=== PATIENT | female | born 1985 | race Caucasian/White ===

== ENCOUNTER 2018-08-17 12:13 | Emergency (ER) | payer MEDICAID ==
[~2018-08-17] VITALS: Ht 149.9 cm; Wt 60.5 kg
[~2018-08-17 12:13] MED LIST: BACL20TA PO; CARB15DR91 EACH EAR; CRAN450C PO; DIVA-76 PO; DOCU-20 PO; LACT10SO6 PO; LORA10TA7 PO; LOVA20TA2 PO; METH1TAB32 PO; MULT-1085 PO; NORG1TAB14 PO; SENN-25 PO; TRAM50TA2 PO; [UNRECOGNIZED DRUG - CODE]
[2018-08-17 14:21] LABS: BASOPHILS # (AUTO) 0.1 X10'3 (0-0.2); BASOPHILS % (AUTO) 0.6 % (0-1); EOSINOPHILS # (AUTO) 0.1 X10'3 (0-0.9); EOSINOPHILS % (AUTO) 0.6 % (0-6); HEMATOCRIT 44.3 % (35.0-45.0); HEMOGLOBIN 14.7 g/dl (12.0-16.0); LYMPHOCYTES # (AUTO) 2.5 X10'3 (1.1-4.8); LYMPHOCYTES % (AUTO) 28.4 % (21-51); MEAN CORPUSCULAR HEMOGLOBIN 30.7 PG (27.0-31.0); MEAN CORPUSCULAR HGB CONC 33.3 g/dL (33.0-36.5); MEAN PLATELET VOLUME 9.2 FL (7.4-10.4); MONOCYTES # (AUTO) 0.8 X10'3 (0-0.9); MONOCYTES % (AUTO) 8.6 % (2-12); NEUTROPHILS # (AUTO) 5.4 X10'3 (1.8-7.7); NEUTROPHILS % (AUTO) 61.8 % (42-75); PLATELET COUNT 223 X10'3 (140-440); RED BLOOD COUNT 4.81 X10'6 (4.20-5.60); WHITE BLOOD COUNT 8.7 X10'3 (4.5-11.0)
[2018-08-17 14:34] LABS: ALANINE AMINOTRANSFERASE 30 U/L (12-78); ALBUMIN 3.7 G/DL (3.4-5.0); ALBUMIN/GLOBULIN RATIO 0.8 (1.1-1.5); ALKALINE PHOSPHATASE 56 IU/L (46-116); ANION GAP 8 (8-16); ASPARTATE AMINO TRANSFERASE 18 U/L (10-37); BILIRUBIN,TOTAL 0.2 MG/DL (0.1-1.0); BLOOD UREA NITROGEN 11 MG/DL (7-18); CALCIUM 9.9 MG/DL (8.5-10.1); CHLORIDE 103 MMOL/L (99-107); CREATININE 0.55 MG/DL (0.40-0.90); GLUCOSE 85 MG/DL (70-104); POTASSIUM 4.4 MMOL/L (3.5-5.1); SODIUM 138 MMOL/L (135-145); TOTAL PROTEIN 8.4 G/DL (6.4-8.2); eGFR > 90 ML/MIN
[2018-08-17 14:41] LABS: ETHANOL < 0.010 GM/DL (0.0-0.010)
--- NOTE | 2018-08-17 14:45 | NUR ---
Patient arrived to ED Overflow. Bed 21. Patient CG at bedside.
--- NOTE | 2018-08-17 15:45 | NUR ---
Patient resting comfortably. No Distress noted. CG at bedside. Will continue to monitor.
[2018-08-17 15:58] LABS: URINE HCG NEGATIVE (NEG)
[2018-08-17 16:04] LABS: URINE AMPHETAMINE SCREEN NEGATIVE (Neg); URINE BARBITUATE SCREEN NEGATIVE (Neg); URINE BENZODIAZEPINES SCREEN NEGATIVE (Neg); URINE CANNABINOID SCREEN NEGATIVE (Neg); URINE COCAINE SCREEN NEGATIVE (Neg); URINE METHADONE SCREEN NEGATIVE (Neg); URINE OPIATE SCREEN NEGATIVE (Neg); URINE PHENCYCLIDINE SCREEN NEGATIVE (Neg)
[2018-08-17] MEDS ORDERED: ESCI20TA PO (16:42)
[2018-08-17] MEDS ORDERED: ARIP2TAB37 PO (16:42)
--- NOTE | 2018-08-17 16:45 | NUR ---
Patient resting comfortably. No Distress noted. CG at bedside. Will continue to monitor.
--- NOTE | 2018-08-17 17:45 | NUR ---
Patient resting comfortably. No Distress noted. CG and dad at bedside. Will continue to monitor. Waiting for Telepysch consult.
[2018-08-17 18:04] VITALS: BP 138/96
--- NOTE | 2018-08-17 18:23 | NUR ---
Patient report given to DEVAN Hong
[2018-08-17] MEDS ORDERED: acetaminophen 325mg tablet PO ONE ×2 (18:30→18:40)
--- NOTE | 2018-08-17 18:45 | NUR ---
Patient is resting comfortably on hospital, father and caregiver at the bedside. Dinner trays just arrived and Tylenol was ordered for a reported headache. Patient is A&O x3 and pleasant, she denies any SI thoughts and says she just feels sad. Per caregiver the patient did not get her 1600 Baclofen 10g, so I will request that dose from pharmacy.
[2018-08-17] MEDS ORDERED: baclofen 10mg tablet PO ONE (18:50)
[2018-08-17] MEDS ORDERED: docusate sod 100mg capsule PO SCH (20:00)
[2018-08-17] MEDS ORDERED: lactulose 20gm/30ml cup PO SCH (20:00)
[2018-08-17] MEDS ORDERED: divalproex sodium 500mg tablet.DR PO SCH (20:00)
[2018-08-17] MEDS ORDERED: baclofen 10mg tablet PO SCH (21:00)
[2018-08-17] MEDS ORDERED: sennosides 8.6mg tablet PO SCH (21:00)
[2018-08-18] MEDS ORDERED: METHENAMINE HIPPURATE 1 GM PO SCH (08:00)
[2018-08-18] MEDS ORDERED: multivitamins, therapeutics tablet PO SCH (08:00)
[2018-08-18] MEDS ORDERED: atorvastatin 10mg tablet PO SCH (08:00)
[2018-08-18] MEDS ORDERED: citalopram 20mg tablet PO SCH (08:00)
[2018-08-18] MEDS ORDERED: carbamide peroxide 15ml bottle EACH EAR SCH (08:00)
[2018-08-18] MEDS ORDERED: loratadine 10mg tablet PO SCH (08:00)
[2018-08-18] MEDS ORDERED: CRYSELLE PO SCH (08:00)
== END 2018-08-17 22:00 ==
LOC: ER 12:13
DX: R45.851 Suicidal ideations (principal); F32.9 Major depressive disorder, single episode, unspecified; Z98.890 Other specified postprocedural states; Z88.5 Allergy status to narcotic agent; Z79.899 Other long term (current) drug therapy
CPT/HCPCS: 36415; 80053; 80305; 80320; 81025; 84443; 85025; 99284

== ENCOUNTER 2021-09-25 00:38 | Emergency (ER) | payer MEDICAID ==
[~2021-09-25] VITALS: Ht 149.9 cm; Wt 60.0 kg
[~2021-09-25 00:38] MED LIST changes: +ARIP2TAB37 PO; -DOCU-20 PO; +DOCU-348 PO; +ESCI20TA PO; +LACT10SO57 PO; -LACT10SO6 PO
[2021-09-25] MEDS ORDERED: normal saline 1000ML IV soln IVB ONE (00:50)
[2021-09-25 01:23] LABS: BASOPHILS # (AUTO) 0.1 X10'3 (0-0.2); BASOPHILS % (AUTO) 0.4 % (0-1); EOSINOPHILS # (AUTO) 0.1 X10'3 (0-0.9); EOSINOPHILS % (AUTO) 0.5 % (0-6); HEMATOCRIT 38.8 % (35.0-45.0); HEMOGLOBIN 13.2 g/dl (12.0-16.0); LYMPHOCYTES # (AUTO) 2.2 X10'3 (1.1-4.8); LYMPHOCYTES % (AUTO) 14.7 % (21-51); MEAN CORPUSCULAR HEMOGLOBIN 30.4 PG (27.0-31.0); MEAN CORPUSCULAR VOLUME 89.3 FL (78-98); MEAN PLATELET VOLUME 8.5 FL (7.4-10.4); NEUTROPHILS # (AUTO) 11.5 X10'3 (1.8-7.7); NEUTROPHILS % (AUTO) 77.4 % (42-75); PLATELET COUNT 266 X10'3 (140-440); RED BLOOD COUNT 4.35 X10'6 (4.20-5.60); RED CELL DISTRIBUTION WIDTH 14.4 % (11.5-14.5); WHITE BLOOD COUNT 14.9 X10'3 (4.5-11.0)
[2021-09-25 01:35] LABS: ALANINE AMINOTRANSFERASE 25 U/L (12-78); ALBUMIN 3.3 G/DL (3.4-5.0); ALBUMIN/GLOBULIN RATIO 0.8 (1.1-1.5); ALKALINE PHOSPHATASE 75 IU/L (46-116); ANION GAP 9 (8-16); ASPARTATE AMINO TRANSFERASE 14 U/L (10-37); BILIRUBIN,TOTAL 0.2 MG/DL (0.1-1.0); BLOOD UREA NITROGEN 9 MG/DL (7-18); BUN/CREATININE RATIO 13.2 (6.6-38.0); CALCIUM 8.8 MG/DL (8.5-10.1); CHLORIDE 104 MMOL/L (99-107); CREATININE 0.68 MG/DL (0.40-0.90); GLUCOSE 111 MG/DL (70-104); POTASSIUM 3.2 MMOL/L (3.5-5.1); SODIUM 140 MMOL/L (135-145); TOTAL CARBON DIOXIDE 26.7 MMOL/L (24-32); TOTAL PROTEIN 7.5 G/DL (6.4-8.2); eGFR > 90 ML/MIN
--- NOTE | 2021-09-25 02:00 | NUR ---
4 unsuccesful attempts to straight cath pt w/ 2 RNs. pt has contraction of limbs d/t cerebral palsy and is currently on her menstrual period. Dr Cuevas aware
[2021-09-25] MEDS ORDERED: magnesium oxide 400mg tablet PO ONE (02:20)
[2021-09-25] MEDS ORDERED: potassium Cl 20 mEq SR tablet PO ONE (02:20)
[2021-09-25] MEDS ORDERED: NAPR-56 PO (02:40)
[2021-09-25] MEDS ORDERED: nitrofurantoin macrocrystal 100mg capsule PO ONE (02:40)
[2021-09-25] MEDS ORDERED: NITR100C PO (02:40)
[2021-09-25] MEDS ORDERED: nitrofurantoin macrocrystal 100mg capsule PO SCH (02:40)
[2021-09-25 03:33] VITALS: BP 134/88
== END 2021-09-25 03:36 | disposition home health service (06) ==
LOC: ER 00:38
DX: M94.0 Chondrocostal junction syndrome [Tietze] (principal); D72.829 Elevated white blood cell count, unspecified; F32.A Depression, unspecified; R56.9 Unspecified convulsions; Z88.5 Allergy status to narcotic agent; Z79.899 Other long term (current) drug therapy
CPT/HCPCS: 36415; 71045; 80053; 85025; 93005; 99285; J7030

== ENCOUNTER 2021-11-17 14:46 | Emergency (ER) | payer MEDICAID ==
[~2021-11-17] VITALS: Ht 152.4 cm; Wt 65.9 kg
[~2021-11-17 14:46] MED LIST changes: +NITR100C PO
[2021-11-17 17:00] VITALS: BP 124/81
[2021-11-17] MEDS ORDERED: CefTRIAXone 2gm/NS 100ml IVPB 100 ML IV ONE (19:55)
[2021-11-17] MEDS ORDERED: CefTRIAXone inj 2,000 MG in dextrose 5%-water 50ml 50 ML IV ONE (20:02)
[2021-11-17 20:59] LABS: BASOPHILS # (AUTO) 0.1 X10'3 (0-0.2); BASOPHILS % (AUTO) 0.6 % (0-1); EOSINOPHILS # (AUTO) 0.2 X10'3 (0-0.9); EOSINOPHILS % (AUTO) 2.2 % (0-6); HEMATOCRIT 39.6 % (35.0-45.0); HEMOGLOBIN 13.5 g/dl (12.0-16.0); LYMPHOCYTES % (AUTO) 36.3 % (21-51); MEAN CORPUSCULAR HEMOGLOBIN 29.3 PG (27.0-31.0); MEAN CORPUSCULAR HGB CONC 34.1 g/dL (33.0-36.5); MEAN CORPUSCULAR VOLUME 85.9 FL (78-98); MEAN PLATELET VOLUME 8.6 FL (7.4-10.4); MONOCYTES % (AUTO) 8.9 % (2-12); NEUTROPHILS # (AUTO) 5.8 X10'3 (1.8-7.7); PLATELET COUNT 301 X10'3 (140-440); RED BLOOD COUNT 4.61 X10'6 (4.20-5.60); RED CELL DISTRIBUTION WIDTH 13.8 % (11.5-14.5); WHITE BLOOD COUNT 11.1 X10'3 (4.5-11.0)
[2021-11-17 21:11] LABS: ALANINE AMINOTRANSFERASE 32 U/L (12-78); ALBUMIN 3.2 G/DL (3.4-5.0); ALBUMIN/GLOBULIN RATIO 0.7 (1.1-1.5); ALKALINE PHOSPHATASE 76 IU/L (46-116); ANION GAP 11 (8-16); ASPARTATE AMINO TRANSFERASE 20 U/L (10-37); BILIRUBIN,TOTAL 0.3 MG/DL (0.1-1.0); BLOOD UREA NITROGEN 9 MG/DL (7-18); CALCIUM 8.4 MG/DL (8.5-10.1); CHLORIDE 99 MMOL/L (99-107); CREATININE 0.36 MG/DL (0.40-0.90); GLUCOSE 82 MG/DL (70-104); SODIUM 135 MMOL/L (135-145); TOTAL CARBON DIOXIDE 25.5 MMOL/L (24-32); TOTAL PROTEIN 7.7 G/DL (6.4-8.2); eGFR > 90 ML/MIN
[2021-11-17] MEDS ORDERED: CEPH500C81 PO (21:56)
[2021-11-17] MEDS ORDERED: potassium Cl 20 mEq SR tablet PO ONE ×2 (22:00→23:00)
--- NOTE | 2021-11-17 22:11 | NUR ---
iv dc'd pt being discharged dressing applied
== END 2021-11-17 22:12 | disposition home or self-care (01) ==
LOC: ER 14:47
DX: N12 Tubulo-interstitial nephritis, not specified as acute or chronic (principal); F32.A Depression, unspecified; Z88.5 Allergy status to narcotic agent; Z79.899 Other long term (current) drug therapy; Z79.2 Long term (current) use of antibiotics; Z78.1 Physical restraint status
CPT/HCPCS: 36415; 80053; 85025; 96365; 99284; J0696; J7060; A4353

== ENCOUNTER 2022-10-25 15:44 | Emergency (ER) | payer MEDICAID ==
[~2022-10-25] VITALS: Ht 167.6 cm; Wt 53.9 kg
[~2022-10-25 15:44] MED LIST changes: -LACT10SO57 PO; +LACT10SO88 PO
[2022-10-25 15:59] VITALS: BP 121/75
[2022-10-25 17:52] LABS: BASOPHILS % (AUTO) 0.6 % (0-1); EOSINOPHILS % (AUTO) 0.5 % (0-6); HEMATOCRIT 39.7 % (35.0-45.0); HEMOGLOBIN 13.4 g/dl (12.0-16.0); LYMPHOCYTES # (AUTO) 2.6 X10'3 (1.1-4.8); LYMPHOCYTES % (AUTO) 37.6 % (21-51); MEAN CORPUSCULAR HEMOGLOBIN 30.9 PG (27.0-31.0); MEAN CORPUSCULAR HGB CONC 33.7 g/dL (33.0-36.5); MEAN CORPUSCULAR VOLUME 91.7 FL (78-98); MEAN PLATELET VOLUME 8.4 FL (7.4-10.4); MONOCYTES # (AUTO) 0.4 X10'3 (0-0.9); MONOCYTES % (AUTO) 5.7 % (2-12); NEUTROPHILS # (AUTO) 3.9 X10'3 (1.8-7.7); NEUTROPHILS % (AUTO) 55.6 % (42-75); PLATELET COUNT 231 X10'3 (140-440); RED BLOOD COUNT 4.33 X10'6 (4.20-5.60); RED CELL DISTRIBUTION WIDTH 13.2 % (11.5-14.5)
[2022-10-25 17:59] LABS: D-DIMER < 0.19 MG/L FEU (0-0.50)
[2022-10-25 18:01] LABS: ALANINE AMINOTRANSFERASE 25 U/L (12-78); ALBUMIN/GLOBULIN RATIO 0.7 (1.1-1.5); ALKALINE PHOSPHATASE 61 IU/L (46-116); ANION GAP 13 (8-16); ASPARTATE AMINO TRANSFERASE 15 U/L (10-37); BILIRUBIN,TOTAL 0.3 MG/DL (0.1-1.0); BLOOD UREA NITROGEN 11 MG/DL (7-18); BUN/CREATININE RATIO 20.8 (10.0-20.0); CALCIUM 8.9 MG/DL (8.5-10.1); CHLORIDE 100 MMOL/L (99-107); CREATININE 0.53 MG/DL (0.40-0.90); GLUCOSE 108 MG/DL (70-104); SODIUM 138 MMOL/L (135-145); TOTAL CARBON DIOXIDE 25.5 MMOL/L (24-32); TOTAL PROTEIN 7.4 G/DL (6.4-8.2); eGFR > 90 ML/MIN
[2022-10-25] MEDS ORDERED: POTASSIUM BICARB 20meq eff tab 20 MEQ TABLET.EFF PO STA (18:18)
== END 2022-10-25 18:43 | disposition home or self-care (01) ==
LOC: ER 15:47
DX: R05.1 Acute cough (principal); E87.6 Hypokalemia; F32.A Depression, unspecified; Z88.5 Allergy status to narcotic agent; Z79.899 Other long term (current) drug therapy; Z79.1 Long term (current) use of non-steroidal anti-inflammatories (NSAID); Z79.2 Long term (current) use of antibiotics
CPT/HCPCS: 36415; 71045; 80053; 83605; 85025; 85379; 87040; 99284